=== PATIENT | female | born 1985 | race Two or more races ===

== ENCOUNTER 2019-10-22 12:31 | Inpatient (IN) | payer BC, MEDICAID ==
[~2019-10-22] VITALS: Ht 160 cm; Wt 86.6 kg
[2019-10-22] MEDS ORDERED: ACETAMINOPHEN 325 MG TAB PO ONE ×2 (12:58→13:15)
[2019-10-22] MEDS ORDERED: ACETAMINOPHEN 500 MG TAB PO ONE (13:00)
[2019-10-22 13:57] LABS: Basophils # (auto) 0 10 ^3/uL (0-0.2); Basophils % (auto) 0.3 % (0.0-2.0); Eosinophils # (auto) 0 10 ^3/uL (0-0.8); Hematocrit 32.4 % (36.0-46.0); Hemoglobin 10.4 g/dL (12.2-16.2); Monocytes # (auto) 0.4 10 ^3/uL (0-1.3); Neutrophils # (auto) 5.3 10 ^3/uL (1.6-8.6); White Blood Cell 6.7 10^3/uL (4.4-10.8)
[2019-10-22 13:59] LABS: Lymphocytes % (auto) 14.7 % (10.0-50.0); Mean Corpuscular Hemoglobin 22.7 pg (28.0-32.0); Mean Corpuscular Volume 70.8 fL (80.0-100.0); Monocytes % (auto) 6.7 % (0.0-12.0); Neutrophils % (auto) 78.3 % (37.0-80.0); Nucleated Red Blood Cells % 0.1 %; Platelet Count (auto) 303 10^3/uL (140-450); Red Blood Cells 4.58 10^6/uL (4.0-5.20); Red Cell Distribution Width 17.6 % (11.8-14.3)
[2019-10-22] MEDS ORDERED: AZITHROMYCIN 500MG/ 250ML 250 ML IV ONE (14:00)
[2019-10-22] MEDS ORDERED: cefTRIAXone 1GM/50ML D5W 50 ML IV ONE (14:00)
[2019-10-22] MEDS ORDERED: SODIUM CHLORIDE 0.9% 2,000 ML IV ONE (14:00)
[2019-10-22 14:16] LABS: INR 1.09 (0.9-1.15); Partial Thromboplastin Time 27.9 sec (23.64-32.05)
[2019-10-22 14:19] LABS: Potassium 3.4 mmol/L (3.5-5.1)
[2019-10-22 14:30] LABS: Albumin 3.2 g/dL (3.4-5.0); Bilirubin, Total 0.3 mg/dL (0.2-1.0); CRP High Sensitivity 11.3 mg/dL (< 0.3); Calcium 8.6 mg/dL (8.5-10.1); Magnesium 2.1 mg/dL (1.6-2.6); Total Protein 8.3 g/dL (6.4-8.2)
[2019-10-22] MEDS ORDERED: SODIUM CHLORIDE 0.9% 1,000 ML IV ONE (15:15)
[2019-10-22] MEDS ORDERED: NITROGLYCERIN 0.4 MG SL TAB SL PRN (15:45)
[2019-10-22] MEDS ORDERED: MORPHINE SULF INJ 2 MG/ML SYRINGE 1ML IV PRN ×2 (15:45→18:45)
[2019-10-22] MEDS ORDERED: SODIUM CHLORIDE 0.9% 1,000 ML IV SCH (18:31)
[2019-10-22] MEDS ORDERED: LACTULOSE 20Gm/30ML SOLN PO PRN (18:45)
[2019-10-22] MEDS ORDERED: ALBUTEROL SULF 2.5 MG/0.5ML(0.5%) NEB SOLN NEB PRN (18:45)
[2019-10-22] MEDS ORDERED: PROMETHAZINE HCL 25 MG/ML 1ML IV PRN (18:45)
[2019-10-22] MEDS ORDERED: ACETAMINOPHEN 500 MG TAB PO PRN ×2 (18:45)
[2019-10-22] MEDS ORDERED: TEMAZEPAM 15 MG CAP PO PRN (18:45)
[2019-10-22] MEDS ORDERED: traMADol HCL 50 MG TAB PO PRN (18:45)
[2019-10-22 18:47] VITALS: BP 117/64
[2019-10-22] MEDS ORDERED: BUDESONIDE (INHALATION) 0.5 MG/2 ML NEB NEB SCH (22:00)
[2019-10-22] MEDS: ALBUTEROL SULF HFA 90MCG INH 200DOSE IN SCH (22:00)
[2019-10-22] MEDS: CLINDAMYCIN 600MG IV 50 ML IV SCH (22:31)
[2019-10-22] MEDS: ENOXAPARIN SOD 80 MG/0.8ML SYRINGE SC SCH (22:32)
[2019-10-22] MEDS: DexAMETHasone SOD PHOS 4 MG/1ML SDV INJ IV SCH (22:32)
--- NOTE | 2019-10-22 22:55 | NUR ---
Respiratory note: PHARMACY WAS CALLED AROUND 1900 FOR MDI. REQUESTED MDI BE SENT TO [facility]. NO MDI RECEIVED AT THIS TIME. PT IN NO RESPIRATORY DISTRESS, WILL CONTINUE TO MONITOR.
[2019-10-23] MEDS: ALBUTEROL SULF HFA 90MCG INH 200DOSE IN SCH ×2 (06:00→14:00)
[2019-10-23] MEDS: CLINDAMYCIN 600MG IV 50 ML IV SCH (09:42)
[2019-10-23] MEDS ORDERED: CHOLECALCIFEROL (VITD3) 1,000UNIT=25mCg TAB PO SCH (10:00)
[2019-10-23] MEDS ORDERED: ASCORBIC ACID 1,000 MG TAB PO SCH (10:00)
[2019-10-23] MEDS ORDERED: levoFLOXacin 500MG 100 ML IV SCH (10:00)
[2019-10-23] MEDS ORDERED: ZINC SULFATE 220mg CAP or TAB PO SCH (10:00)
[2019-10-23] MEDS ORDERED: levoFLOXacin 250 MG TAB PO SCH (11:23)
[2019-10-23] MEDS: DexAMETHasone SOD PHOS 4 MG/1ML SDV INJ IV SCH (11:45)
[2019-10-23] MEDS: ENOXAPARIN SOD 80 MG/0.8ML SYRINGE SC SCH (11:45)
[2019-10-23 11:54] LABS: Basophils # (auto) 0 10 ^3/uL (0-0.2); Eosinophils # (auto) 0 10 ^3/uL (0-0.8); Hemoglobin 9.1 g/dL (12.2-16.2); Lymphocytes # (auto) 0.5 10 ^3/uL (0.4-5.4); Mean Corpuscular Volume 71.8 fL (80.0-100.0); Monocytes # (auto) 0.3 10 ^3/uL (0-1.3); Neutrophils # (auto) 3.3 10 ^3/uL (1.6-8.6); Nucleated Red Blood Cells % 0.1 %; White Blood Cell 4.1 10^3/uL (4.4-10.8)
[2019-10-23 11:56] LABS: Basophils % (auto) 0.2 % (0.0-2.0); Lymphocytes % (auto) 12.7 % (10.0-50.0); Mean Corpuscular Hemoglobin 22.5 pg (28.0-32.0); Mean Corpuscular Hgb Conc. 31.4 g/dL (32.0-36.0); Monocytes % (auto) 6.7 % (0.0-12.0); Neutrophils % (auto) 80.4 % (37.0-80.0); Platelet Count (auto) 224 10^3/uL (140-450); Red Blood Cells 4.04 10^6/uL (4.0-5.20); Red Cell Distribution Width 18.2 % (11.8-14.3)
[2019-10-23 12:09] LABS: Albumin 2.5 g/dL (3.4-5.0); BUN/Creatinine Ratio 11.5; Calcium 8.4 mg/dL (8.5-10.1); Magnesium 2.3 mg/dL (1.6-2.6); Potassium 3.7 mmol/L (3.5-5.1)
[2019-10-23 12:12] LABS: Bilirubin, Total 0.3 mg/dL (0.2-1.0)
[2019-10-23] MEDS ORDERED: FER325T PO (13:29)
[2019-10-23] MEDS ORDERED: ASCO10003 PO (13:29)
[2019-10-23] MEDS ORDERED: ACE650RS PR (13:29)
[2019-10-23] MEDS ORDERED: ZINC220T6 PO (13:29)
[2019-10-23] MEDS ORDERED: CHOL1000 PO (13:29)
[2019-10-23] MEDS ORDERED: DOCU100C8 PO (13:29)
[2019-10-23] MEDS ORDERED: DEX4T PO (13:29)
[2019-10-23] MEDS ORDERED: ALBUAER3 IN (13:29)
[2019-10-23] MEDS ORDERED: AZIT250T9 PO (13:29)
[2019-10-23] MEDS ORDERED: AZITHROMYCIN 250 MG TAB PO SCH (13:30)
[2019-10-23] MEDS ORDERED: DOCUSATE SOD 100 MG CAP PO PRN (13:30)
--- NOTE | 2019-10-23 13:50 | NUR ---
Respiratory note: PT RECEIVED MDI TX SCHEDULE. EMAR CLEAR ONCE RT HAD TIME TO CLEAR.
[2019-10-23 17:25] VITALS: BP 133/79
[2019-10-23] MEDS ORDERED: FERROUS SULFATE 325 MG TAB PO SCH (18:00)
[2019-10-24] MEDS ORDERED: ENOXAPARIN SOD 40 MG/0.4 ML SYRINGE SC SCH (10:00)
== END 2019-10-23 13:30 | disposition home or self-care (01) | DRG 177 ==
LOC: ER 12:31 → TELE 12:32
PROVIDERS: ADMIT Internal Medicine; ATTEND Internal Medicine
DX: U07.1 COVID-19 (principal); J12.89 Other viral pneumonia; J96.01 Acute respiratory failure with hypoxia; D50.8 Other iron deficiency anemias; E66.9 Obesity, unspecified; Z68.33 Body mass index [BMI] 33.0-33.9, adult; Z88.1 Allergy status to other antibiotic agents; Z79.899 Other long term (current) drug therapy
CPT/HCPCS: 36415; 71045; 80053; 82728; 83605; 83615; 83735; 84443; 85025; 85379; 85610; 85730; 86141; 87040; 87070; 87804; 87880; 93005; 94640; 96365; 96366; G0378; J0696; J1100; J3490